=== PATIENT | male | born 1955 | race Caucasian/White ===

== ENCOUNTER 2018-06-25 10:16 | Emergency (ER) | payer BC, SELFPAY ==
[2018-06-25 10:17] VITALS: BP 149/82; PULSE 87; RESP 18; TEMP 36.8; O2SAT 97; BMI 37.5
--- NOTE | 2018-06-25 10:38 | CT_ITS ---
STUDY: CT ABDOMEN AND PELVIS WITH CONTRAST REASON FOR EXAM: Male, 63 years old. Right-sided abdominal pain with nausea and vomiting. History of hepatic carcinoma. RADIATION DOSAGE (If Supplied By Facility): CTDIvol = ( 17.07 ) mGy, DLP = ( 1360.47 ) mGycm TECHNIQUE: Transaxial images were obtained from the dome of the diaphragm to the symphysis pubis without oral contrast. Isovue 370 100 IV was administered. Sagittal and coronal images were reconstructed. Individualized dose optimization techniques were used for this CT. COMPARISON: None. FINDINGS: Calcified granuloma in the left lower lobe. Increased markings at the lung bases suggestive of atelectasis. Unipolar pacemaker is seen. Coronary artery calcification. There is decreased attenuation of the liver consistent with steatosis. There is a 10.8 cm x 8.9 cm hypodense mass in the midportion of the right lobe of the liver. This extends into the inferior pole of the liver as well as in the region of the gallbladder fossa. This is suggestive of either hepatocellular carcinoma or metastatic disease. A small cyst is seen in the anterior aspect of the right lobe. There are multiple gallstones. Normal spleen. Normal pancreas. Normal bilateral adrenal glands. Normal right kidney. Left parapelvic cysts. There is a small hiatal hernia. Normal small intestine. There are multiple colonic diverticula consistent with diverticulosis. The appendix is visualized and appears normal. There is diffuse atherosclerotic calcification of the abdominal aorta, without a demonstrated aneurysm. Normal inferior vena cava. There is borderline retroperitoneal lymphadenopathy with enlarged nodes no greater than 10mm in the short axis diameter. Normal urinary bladder. Small bilateral inguinal hernias containing fat worse on the left side. There are mild degenerative changes of the visualized lumbar spine. CT/Abdomen/Pelvis W IV Cont ONLY IMPRESSION: Large inhomogeneous mass in the right lobe of the liver extending into the region of the gallbladder fossa. Diffuse fatty infiltration of the liver. Gallstones. Sigmoid diverticulosis. Electronically Signed: Juan Yeboah MD at 12:36 EST , Service support ,
--- NOTE | 2018-06-25 10:54 | ED.VISSUMM ---
- ER Visit Summary Date of Service: 06/25/18 Chief Complaint: Abdominal pain, nausea, vomiting History of Present Illness: The patient is a 63 M with recent diagnosis of liver carcinoma presents to the emergency department with abdominal pain, nausea, and vomiting. The patient initially had abdominal pain in the early part of April. They went to [facility]. He was diagnosed with gallstones, but was found to have masses in his liver. He has been following with Dr. Mccallum. He did have chemo a week ago. He states last night, he began to have a dull ache in his upper abdomen. He states when he woke this morning, he was nauseated with some vomiting. He has been moving his bowels without issue. He does not think that he had fever, but he does admit to some chills. He denies any other systemic symptoms. Physical Examination: Vital signs reviewed General: Well-nourished, well-developed Head: Normocephalic, atraumatic Eyes: Pupils equal and reactive, extraocular muscles intact Neck, supple, no lymphadenopathy Heart: Regular rate and rhythm Respiratory: No distress, clear bilaterally Abdomen: Soft, nontender, nondistended, no peritoneal signs Back: Nontender Extremities: Nontender, no edema, no cords Skin: Normal color no rash Neuro: Alert and oriented, no focal or lateralizing deficits Test Results: [] Emergency Department Course and Treatment: Patient only had very mild pain in his right upper quadrant. He has not had any fever. IV was established. He was given fluids and analgesics. He still had pain in his analgesics were redosed. He is remained pain-free since then. Screening labs were obtained. He does not have a mild leukocytosis, but he is not neutropenic. Urine shows no infection. LFTs were normal. Lactate was normal. Patient underwent CT of abdomen pelvis. This does demonstrate his large intrahepatic mass which we knew about. There is also a solitary gallstone. I also obtained a right upper quadrant ultrasound which shows a normal gallbladder. On reevaluation, he is still resting comfortably. I discussed the patient with Dr. Issa. At this time, I do feel the patient is safe for outpatient therapy. He is comfortable with this plan of care. He will be discharged home. Treatment Plan: [] Disposition: Discharge Impression:. 1. Abdominal pain This note was generated with Dragon dictation software. It may contain incorrect words, spelling, and punctuation that were not noted in review of the chart prior to signing ED Disposition - Plan for ED Patient: Instructions: ED Abdominal Pain Unkn Cause Prescriptions: Oxycodone [Oxyir] 5 mg PO Q6H PRN PRN 3 Days #10 tab PRN Reason: Pain Ondansetron [Zofran Odt] 4 mg PO Q8H PRN PRN #10 tab PRN Reason: Nausea Referrals: Yari Arroyo PA-C [Primary Care Provider] -
[2018-06-25] MEDS: Ondansetron 4 MG/2 ML Vial IV (10:55)
[2018-06-25] MEDS: Morphine 4 MG/ML Syringe IV (10:55)
[2018-06-25] MEDS: 0.9% Normal Saline 1,000 ML 1000 ML IV (10:55)
[2018-06-25 10:58] LABS: Absolute Lymphocyte Count 0.52 X10^3/ul (0.83-4.51); Absolute Neutrophil Count 12.3 X10^3/uL (2.0-7.7); Basophil# 0.02 X10^3/uL; Basophil% 0.1 % (0-1); Eosinophil# 0.03 X10^3/uL; Eosinophils% 0.2 % (0-5); Hematocrit 36.4 % (40-54); Lymphocyte # 0.52 X10^3/ul (4.0); Lymphocyte % 3.6 % (19-41); Mean Corpuscular Hgb 28.4 pg (27.0-32.0); Mean Corpuscular Volume 86.3 fL (80-94); Mean Platelet Vol. 8.9 fl (6.2-12.0); Monocyte# 1.47 X10^3/uL; Monocyte% 10.2 % (0-10); Neutrophil # 12.34 X10^3/uL (2.7-7.7); Neutrophil % 85.6 % (47-70); Platelet Count 186 K/mm3 (150-450); RBC Distribution Width CV 13.9 % (11.6-14.6); RBC Distribution Width SD 41.9 fl (35.1-43.9); Red Blood Count 4.22 M/mm3 (4.6-6.2); White Blood Count 14.4 K/mm3 (4.4-11.0)
[2018-06-25 11:00] LABS: POSITIVE COUNT NO; POSITIVE DIFFERENTIAL YES; POSITIVE MORPHOLOGY NO
[2018-06-25 11:01] LABS: Differential Indicated SCAN CRITERIA MET
[2018-06-25 11:12] LABS: ALB/GLOB Ratio 0.8 RATIO (0.9-2.4); AST(SGOT) 26 U/L (15-37); Alanine Aminotransfer ALT/SGPT 19 U/L (16-61); Alkaline Phosphatase 98 U/L (45-117); Anion Gap 8 (5-15); BUN 11 mg/dL (7-18); BUN/Creat Ratio 13.2 RATIO (10-20); Calcium,Total 8.9 mg/dL (8.5-10.1); Chloride 106 mmol/L (98-107); Creatinine, Serum 0.83 mg/dL (0.70-1.30); EST Glomerular Filtration Rate 100 mL/min (>60); Est Glom Filt Rate - Afr Amer 121 mL/min (>60); Estimated Creatinine Clearance 111.71 ml/min; Globulin 3.9 g/dL (2.2-4.2); Glucose 122 mg/dL (74-106); Lipase 235 U/L (73-393); Protein, Total 6.9 g/dL (6.4-8.2); Sodium Level 136 mmol/L (136-145)
[2018-06-25 11:21] LABS: Lactic Acid 1.1 mmol/L (0.4-2.0)
[2018-06-25 11:24] LABS: Differential Comment SCANNED; Platelet Estimate ADEQUATE (ADEQ); Red Cell Morphology NORM C+C NORMAL (NORM C&C)
--- NOTE | 2018-06-25 11:31 | US_ITS ---
STUDY: ABDOMINAL ULTRASOUND - RIGHT UPPER QUADRANT REASON FOR VISIT: Male, 63 years old. Right upper quadrant pain. TECHNIQUE: Ultrasound evaluation of the right upper quadrant was performed with real-time and static berger-scale imaging. TECHNICAL QUALITY: Adequate. COMPARISON: Comparison is made with prior CT scan of the abdomen today. FINDINGS: Liver: The liver is enlarged and measures 21 cm. There is increased echogenicity consistent with fatty infiltration. The bile ducts are within normal limits. There is hepatic color flow. The direction of portal flow is hepatopetal. There is a dominant 7.2 cm x 0.7 cm x 6.9 cm inhomogeneous solid mass in the mid and inferior portion of the right lobe of the liver. A similar-appearing mass measuring 4.9 cm x 5.2 cm x 5.4 cm also seen in the right lobe. Gallbladder: Normal distended gallbladder. The gallbladder wall measures 3.1 mm. There is a negative sonographic Tuttle's sign. There is no pericholecystic fluid. There is a solitary echogenic gallstone within the gallbladder. This measures 1.2 cm x 1.4 cm x 0.8 cm. Common Bile Duct (C.B.D.): The common bile duct measures 5.3 mm. Pancreas: Normal size of the head, body and tail of the pancreas. There is normal echogenicity of the pancreas. There is no demonstrated pancreatic mass or cyst. Right Kidney: Normal size of the right kidney. The right kidney measures 14.6 cm x 6.1 cm x 6.3 cm. Normal renal cortex. The right cortex measures 1.5 cm. There is no demonstrated renal mass or cyst. There is no right hydronephrosis. US/Gallbladder IMPRESSION: Hepatomegaly with the 2 masses within the liver as described. Single gallstone. Electronically Signed: Juan Yeboah MD at 13:17 EST , Service support ,
[2018-06-25 11:51] VITALS: BP 134/80; PULSE 83; RESP 17; O2SAT 95
[2018-06-25] MEDS: HYDROmorphone 1 MG/ML Syringe IV (11:51)
[2018-06-25 13:10] LABS: Bacteria 0 SEEN /hpf (None Seen); Mucous, Urine 0 SEEN /hpf (<or=2+); Red Blood Cells-Urine 0 SEEN /hpf (0-5); White Blood Cells 0 SEEN /hpf (0-5)
[2018-06-25 13:11] LABS: Color, Urine Yellow (Yellow); Glucose, Dipstick Normal (Normal); Ketone-Dipstick Negative (Negative); Leukocyte Esterase-Dipstick 25 /ul (Negative); Nitrite-Dipstick Negative (Negative); Occult Blood-Urine Negative /ul (Negative); Protein-Dipstick 30 mg/dl (Negative); Urine Bilirubin Dipstick Negative (Negative); Urine Clarity Clear (Clear); Urine Urobilinogen Normal (Normal)
[2018-06-25 13:29] LABS: Squamous Epithelial Cells - UA 0-5 SEEN /hpf (0-5)
[2018-06-25 13:57] VITALS: BP 135/76; PULSE 81; RESP 17; O2SAT 95
== END 2018-06-25 13:57 | disposition home or self-care (01) ==
LOC: ED 11:07
PROVIDERS: Emergency Provider Emergency Medicine; Family Provider Family Medicine; PCP Family Medicine
DX: R10.10 Upper abdominal pain, unspecified (principal); C22.8 Malignant neoplasm of liver, primary, unspecified as to type
CPT/HCPCS: 36591; 74177; 76705; 80053; 81001; 83605; 83690; 85025; 96361; 96374; 96375; 99282; J7030; Q9967; A4216; J2405

== ENCOUNTER 2018-07-27 09:16 | Inpatient (IN) | payer BC, SELFPAY ==
[2018-07-27] VITALS (13 sets, daily range): BP systolic 114–152; BP diastolic 67–92; PULSE 88–107; RESP 16–22; TEMP 36–37; O2SAT 91–97; BMI 36.6; BMI 36.2; BMI 36.3
--- NOTE | 2018-07-27 09:29 | RAD_ITS ---
STUDY: X-RAY CHEST REASON FOR EXAM: Male, 63 years old. Cough and shortness of breath. TECHNIQUE: Single AP portable view of the chest. COMPARISON: None. FINDINGS: A right-sided portacatheter is seen with the tip in the proximal portion of the superior vena cava. EKG electrodes are seen. The lungs are clear and expanded. There is no demonstrated pleural abnormality. Normal size heart. Normal mediastinum and maribel. Normal visualized pulmonary arteries. There is atherosclerotic calcification of the aortic arch with tortuosity. There are diffuse degenerative changes of the visualized thoracic spine. Normal visualized ribs, clavicles, and shoulders. There is no demonstrated abnormality of the visualized soft tissue structures of the upper abdomen. RAD/Chest 1 View (Portable) IMPRESSION: No acute abnormality is present. Electronically Signed: Juan Yeboah, at 10:10 EDT , Service support ,
--- NOTE | 2018-07-27 09:29 | EKG12_ITS ---
Test Reason : SOB Blood Pressure : / mmHG Vent. Rate : 091 BPM Atrial Rate : 091 BPM P-R Int : 188 ms QRS Dur : 094 ms QT Int : 360 ms P-R-T Axes : 051 -12 029 degrees QTc Int : 442 ms Normal sinus rhythm Normal ECG Confirmed by MICHEAL GUADARRAMA, ROSCOE ([id number]), advertising editor JANNETTE RAHMAN ([id number]) on 07/29/2018 12:47:46 PM Referred By: MARGE Confirmed By:ROSCOE BURTON MD
--- NOTE | 2018-07-27 09:32 | ED.VISSUMM ---
- ER Visit Summary Date of Service: 07/27/18 Chief Complaint: Shortness of breath History of Present Illness: The patient is a 63 M with history of cholangiocarcinoma last chemotherapy 10 days ago presents to the emergency department dyspnea. The patient follows with Dr. Issa. He had an outpatient CT scan done on Thursday to evaluate response to treatment. He was found to have bilateral pulmonary emboli with a saddle embolus. Patient states that over the past 2 days, he is felt more short of breath. He states that he cannot walk more than 10 feet without getting dyspneic. He does have some chest heaviness. He denies any fevers. He has had some night sweats, but states he had a sense he was diagnosed with his cancer. He denies cough. Patient has no history of prior pulmonary emboli. He denies any recent surgery. He is otherwise been in his normal state of health. Physical Examination: Vital signs reviewed General: Well-nourished, well-developed Head: Normocephalic, atraumatic Eyes: Pupils equal and reactive, extraocular muscles intact Neck, supple, no lymphadenopathy Heart: Regular rate and rhythm Respiratory: No distress, clear bilaterally Abdomen: Soft, nontender, nondistended, no peritoneal signs Back: Nontender Extremities: Nontender, no edema, no cords Skin: Normal color no rash Neuro: Alert and oriented, no focal or lateralizing deficits Test Results: [] Emergency Department Course and Treatment: [The patient presents with diagnosed bilateral pulmonary emboli. I was able to review his outpatient. He was mildly tachypneic on arrival. His pulse ox is 90%. He was placed on 2 L and had increasing comfort. His EKG shows evidence of right ventricular strain or acute ischemia. Enzymes are normal. BNP was normal. However, given the patient's significant clot burden I do feel that he is going to require admission. I discussed the patient with both the hospitalist, Dr. Murrieta and Dr. Mccallum, the patient's oncologist. Patient is given therapeutic Lovenox and will be admitted to telemetry for further workup of his bilateral pulmonary emboli. Treatment Plan: [] Disposition: Admission Impression: 1. Bilateral pulmonary emboli This note was generated with GeneTexation software. It may contain incorrect words, spelling, and punctuation that were not noted in review of the chart prior to signing ED Disposition - Plan for ED Patient: Referrals: Yari Arroyo PA-C [Primary Care Provider] -
[2018-07-27 10:15] LABS: Hematocrit 33.9 % (40-54); Mean Corp Hgb Conc 32.4 g/gl (32-36); Mean Corpuscular Hgb 27.8 pg (27.0-32.0); Mean Corpuscular Volume 85.6 fL (80-94); Mean Platelet Vol. 9.8 fl (6.2-12.0); Platelet Count 147 K/mm3 (150-450); RBC Distribution Width SD 52.3 fl (35.1-43.9); Red Blood Count 3.96 M/mm3 (4.6-6.2); White Blood Count 3.1 K/mm3 (4.4-11.0)
[2018-07-27 10:19] LABS: International Normalized Ratio 1.2; Prothrombin Time (Protime)PT. 14.9 SECONDS (11.7-14.9)
[2018-07-27 10:20] LABS: Partial Thromboplast Time 35.3 Seconds (24.1-36.2)
[2018-07-27 10:21] LABS: Differential Indicated MANUAL DIFF; POSITIVE COUNT YES; POSITIVE DIFFERENTIAL YES; POSITIVE MORPHOLOGY YES
[2018-07-27 10:34] LABS: ALB/GLOB Ratio 0.8 RATIO (0.9-2.4); AST(SGOT) 30 U/L (15-37); Alanine Aminotransfer ALT/SGPT 23 U/L (16-61); Albumin, Serum 2.9 g/dL (3.2-5.0); Alkaline Phosphatase 120 U/L (45-117); Anion Gap 5 (5-15); BNP,B-Type NATRIURETIC PEPTIDE 57.5 pg/mL (0-100); BUN 11 mg/dL (7-18); BUN/Creat Ratio 11.6 RATIO (10-20); Calcium,Total 9.1 mg/dL (8.5-10.1); Chloride 106 mmol/L (98-107); Creatinine, Serum 0.95 mg/dL (0.70-1.30); EST Glomerular Filtration Rate 86 mL/min (>60); Est Glom Filt Rate - Afr Amer 104 mL/min (>60); Globulin 3.7 g/dL (2.2-4.2); Glucose 91 mg/dL (74-106); Potassium 4.2 mmol/L (3.5-5.1); Protein, Total 6.6 g/dL (6.4-8.2); Sodium Level 137 mmol/L (136-145)
[2018-07-27 10:37] LABS: Absolute Nucleated RBC Count 0.08 10^3/uL (0-5); NRBC Flagged by Analyzer 2.5 % (0-5)
--- NOTE | 2018-07-27 10:48 | HP.PCM_ITS ---
Problem List (1) Pulmonary embolism Status: Acute Qualifiers: Pulmonary embolism type: saddle Chronicity: acute (2) Cholangiocarcinoma Status: Chronic (3) Anxiety and depression Status: Chronic (4) GERD (gastroesophageal reflux disease) Status: Chronic Qualifiers: Esophagitis presence: esophagitis presence not specified Qualified Code(s): K21.9 - Gastro-esophageal reflux disease without esophagitis (5) Hypokalemia Status: Chronic History of Present Illness Date of Admission: 07/27/18 Chief Complaint: Chest pain, dyspnea. The patient is a 63 y/o M w/ PMHx: Anxiety and Depression, Overweight, Hypokalemia, GERD, Recent 04/05/18 Diagnosis Choleangiocarcinoma (Metastatic) now completed his fourth round of chemotherapy with next initial planned start on 07/28/18 following w/ Dr. Issa who noted onset of a very transient episode of initially chest discomfort, midsternal, sharp stabbing in nature with shortness of breath associated, resolved quickly and did occur when he was more active with a repeat episode this prior Thursday with onset then progressively worsening dyspnea over the last 1.[address] abdomen and pelvis obtained for routine follow-up evaluation for his cholangiocarcinoma with noted saddle embolus with referral to the ED for immediate evaluation. He does also mention that over the last couple weeks he did have transient primarily right calf discomfort and does have bilateral lower extremity chronic edema although not pitting. In the ED workup included T 96.8, heart rate 107, BP 145/80, respiratory rate 18, 91% on room air, CBC with WBC 3.1, hemoglobin 11, platelet 147, unremarkable coags, unremarkable CMP aside alk phos 120, troponin less than 0.015, EKG with no acute evidence of ischemia, CT chest, abdomen and pelvis with contrast performed outpatient at the [facility] notable for results inclusive of large bilateral central pulmonary embolism with emboli extending peripherally to at least the level of the segmentals arteries, stable pulmonary nodules, mild decrease in size of primary hepatic mass and adjacent secondary mass, stable abdominal adenopathy. In the emergency room patient administered therapeutic Lovenox x1. Discussed case with patient oncologist. From review of case Dr. Issa and upon immediate read and results of saddle embolism patient called in therapeutic Lovenox but given severe symptomatology occurred emergently to the ED. Upon evaluation of patient initially he notes improvement just with oxygen supplementation. Past Medical History Past Medical History (Chronic Problems): Chronic Problems Cholangiocarcinoma (Chronic) Anxiety and depression (Chronic) GERD (gastroesophageal reflux disease) (Chronic) Hypokalemia (Chronic) Allergies ondansetron [From Zofran] Adverse Reaction (Verified 07/27/18 09:17) Nausea Home Medications: Ambulatory Orders Medication Instructions Recorded Fluoxetine [Prozac] 20 mg PO DAILY 07/27/18 Omeprazole 20 mg PO BID 07/27/18 Potassium Chloride [Klor-Con] 20 meq PO DAILY 07/27/18 Promethazine HCl 25 mg PO PRN PRN 07/27/18 Surgical History: - - Port placement, wisdom teeth extraction. Psychiatric History: Anxiety, Depression Lives: Spouse/ Significant Other Smoking Status: Former smoker - Quit 26+ years prior with prior to this 1.5 pack/day cigarette tobacco usage. Tobacco Use: Non-smoker Alcohol: Rare Drugs: None - *Family History Maternal History Items: - - Patient notes a maternal family history of secondary to complications from a ruptured abdominal abscess of some type with peritonitis in her 70s. Paternal History Items: - - Notes a paternal family history of pancreatic cancer, at age 58. Review of Systems Constitutional: Reports: Malaise, Weakness, Fatigue. Denies: Chills, Fever, Weight Change HEENT: Denies: Head Aches, Sinus Congestion, Sinus Drainage Cardiovascular: Reports: Chest Pain, Edema. Denies: Chest Pressure, Chest Tightness, Heaviness, Light Headedness, Orthopnea, Palpitations, Syncope Respiratory: Reports: Shortness of Breath, Shortness of breath at rest, Shortness of breath upon exertion. Denies: Cough, Sputum production Gastrointestinal: Denies: Abdominal Pain, Nausea, Vomiting Genitourinary: Denies: Dysuria Musculoskeletal: Reports: Leg Pain. Denies: Joint Pain, Joint Tenderness Skin: Denies: Rash, Wounds Neurological: Denies: Numbness, Tingling, Focal weakness Psychiatric: Reports: Anxiety, Depression. Denies: Homicidal Ideations, Suicidal Ideations Hematologic/ Lymphatic: Reports: Anemia. Denies: Easy Bruising, Easy Bleeding VTE Information - Inpt Only VTE Present on Admission: No VTE Mechan Device Prophylaxis: SCD's VTE Pharm Prophylaxis ordered?: Yes Patient Problems: Active and Suspected Problems Pulmonary embolism (Acute) Subjective: Seated upright in the PCU bed, no acute distress, notes feeling improved since oxygen supplementation initiated in the ED. No current chest discomfort. Objective: Physical Examination: General: awake, alert, oriented x 3 and cooperative, seated upright in the PCU bed, no acute distress, no current chest discomfort, dyspnea has improved. Skin: normal color, turgor, no icterus, cyanosis. HEENT: AT/NC, EOMI, PERRLA, mildly dry MM, no carotid bruits or JVD noted. Lungs: Diminished breath sounds, greater bilateral bases, moderate effort, no rales, ronchi or wheezing. Heart: Improved, regular rate and rhythm; no gallop, rub audible. Abdomen: soft, obese, NTTP, ND, normal BS, difficult to assess for HSM secondary to habitus. Extremities: no cyanosis, clubbing, bilateral lower extremity pedal to proximal montague edema, nonpitting, no current bilateral calf discomfort noted with palpation. Neurological: patient awake, alert, oriented x 3; cognitive function intact; pupils equally reactive to light and accomodation; cranial nerves II-XII grossly normal, moving all 4 extremities, no focal deficits, strength moderately to severely globally decreased secondary to acute presentation Psychiatric: affect appears normal, mildly fatigued, no acute evidence of depressive or anxiety feelings. - Physical Exam Vital Signs Temp Pulse Resp BP Pulse Ox 96.8 F L 93 22 H 122/81 H 97 07/27/18 09:17 07/27/18 10:26 07/27/18 10:26 07/27/18 10:26 07/27/18 10:26 Oxygen Flow Rate (L/min) 2 Oxygen Delivery Method Nasal Cannula Weight: 293 lb Body Mass Index (BMI) 36.6 Laboratory Tests Past 24 Hrs 07/27/18 07/27/18 07/27/18 09:50 09:50 09:50 WBC 3.1 L RBC 3.96 L Hgb 11.0 L Hct 33.9 L MCV 85.6 MCH 27.8 MCHC 32.4 RDW 18.0 H RDW Differential 52.3 H Plt Count 147 L MPV 9.8 Neut % (Auto) Not Reportable Absolute Neuts (auto) Not Reportable Total Counted Pending Nucleated RBC % 2.5 Absolute Retic 0.08 PT 14.9 INR 1.2 APTT 35.3 Sodium 137 Potassium 4.2 Chloride 106 Carbon Dioxide 26.0 Anion Gap 5 BUN 11 Creatinine 0.95 Estim Creat Clear Calc 97.60 Est GFR (MDRD) Af Amer 104 Est GFR (MDRD) Non-Af 86 BUN/Creatinine Ratio 11.6 Glucose 91 Calcium 9.1 Total Bilirubin 0.50 AST 30 ALT 23 Alkaline Phosphatase 120 H Troponin I < 0.015 B-Natriuretic Peptide Total Protein 6.6 Albumin 2.9 L Globulin 3.7 Albumin/Globulin Ratio 0.8 L 07/27/18 09:50 WBC RBC Hgb Hct MCV MCH MCHC RDW RDW Differential Plt Count MPV Neut % (Auto) Absolute Neuts (auto) Total Counted Nucleated RBC % Absolute Retic PT INR APTT Sodium Potassium Chloride Carbon Dioxide Anion Gap BUN Creatinine Estim Creat Clear Calc Est GFR (MDRD) Af Amer Est GFR (MDRD) Non-Af BUN/Creatinine Ratio Glucose Calcium Total Bilirubin AST ALT Alkaline Phosphatase Troponin I B-Natriuretic Peptide 57.5 Total Protein Albumin Globulin Albumin/Globulin Ratio Assessment/Plan All Active Problems Pulmonary embolism (Acute) The patient is a 63 y/o M w/ PMHx: Anxiety and Depression, Overweight, Hypokalemia, GERD, Recent 04/05/18 Diagnosis Choleangiocarcinoma (Metastatic) now completed his fourth round of chemotherapy with next initial planned start on 07/28/18 following w/ Dr. Issa who noted onset of a very transient episode of initially chest discomfort, midsternal, sharp stabbing in nature with shortness of breath associated, resolved quickly and did occur when he was more active with a repeat episode this prior Thursday with onset then progressively worsening dyspnea over the last 1.[address] abdomen and pelvis obtained for routine follow-up evaluation for his cholangiocarcinoma with noted saddle embolus with referral to the ED for immediate evaluation. (1) Dyspnea, chest pain secondary to Pulmonary Embolism, Saddle: ED workup incl uded T 96.8, heart rate 107, BP 145/80, respiratory rate 18, 91% on room air, CBC with WBC 3.1, hemoglobin 11, platelet 147, unremarkable coags, unremarkable CMP aside alk phos 120, troponin less than 0.015, EKG with no acute evidence of ischemia, CT chest, abdomen and pelvis with contrast performed outpatient at the [facility] notable for results inclusive of large bilateral central pulmonary embolism with emboli extending peripherally to at least the level of the segmentals arteries, stable pulmonary nodules, mild decrease in size of primary hepatic mass and adjacent secondary mass, stable abdominal adenopathy. In the emergency room patient administered therapeutic Lovenox x1. Discussed case with patient oncologist. From review of case Dr. Issa and upon immediate read and results of saddle embolism patient called in therapeutic Lovenox but given severe symptomatology occurred emergently to the ED. Will admit to PCU, maintain on cardiac telemetry. Will obtain ECHO and BL LE DVT US. Given acute severe saddle PE in the setting of known cancer, per recommendations based on CLOT trial and superiority of injectable anticoagulation compared to PO anticoagulation with pts with active malignancy and thrombosis will plan to assess for initiation and continuation of lovenox 1 mg/kg q12. If not an option (i.e cost), may consider usage per CLOT trial of new oral anticoagulants or coumadin regimen; however, recently called in per his oncologist and was noted to be affordable at that time. (2) Metastatic cholangiocarcinoma: Patient with recent 04/05/18 diagnosis, recently completed his fourth round of chemotherapy, next planned start on 07/28/18, following w/ Dr. Issa, mag and phos pending. Discussed case with Dr. Issa and will follow-up with him upon discharge, will delay chemotherapy until clinically appropriate from current acute presentation. (3) Pancytopenia, Chronic: Admission CBC with WBC 3.1, hemoglobin 11, platelet 147, ongoing recent chemotherapy with as noted diagnosis cholangiocarcinoma, metastatic, trend CBC. (4) Anxiety and Depression: Continue home Prozac regimen. (5) Hypokalemia: Maintain patient on home potassium supplementation. (6) GERD: Continue home PPI. (7) DVT prophylaxis: SCDs pending anticoagulation and DVT study, therapeutic Lovenox to be continued. Code Visit Inpatient E&M: 97236 Init Hosp L3
[2018-07-27 10:51] LABS: Basophil 2 % (0-1); Eosinophil 4 % (0-5); Lymphocyte 39 % (19-41); Metamyelocyte 1 % (0-1); Monocyte 38 % (0-10); Neutrophil-Band 4 % (0-5); Neutrophil-Segmented 12 % (47-70); Platelet Estimate SLT DEC (ADEQ); Red Cell Morphology NORM C+C NORMAL (NORM C&C); Total Cells Counted 100 (MANUAL DIFF)
[2018-07-27 10:52] LABS: Absolute Neutrophil Count 0.5 X10^3/uL (2.0-7.7)
[2018-07-27] MEDS: Enoxaparin 150 MG/ML Syringe 130 MG SC ×2 (11:10→22:12)
--- NOTE | 2018-07-27 11:20 | CASEMGMT ---
RN CM Assessment Introduced role of RN CM to patient and spouse Patsy at bedside.? Patient is alert, oriented and able?to participate in RN CM Assessment. ?Care providers, pharmacy, and demographics verified. Presentation: Dyspnea. H/o Cholangiocarcinoma, last Chemo 10days ago. Outpt f/u CT to eval Tx response done Thursday- found bilt PE w/a saddle embolus. Admit Dx: Acute PE, Dyspnea Re-Admit: No, ER 06/25/18 for vomiting. Barriers/Issues: None PCP: Yari Arroyo Specialists: Jorge Alberto Issa [facility] Insurance: [employer] Rx Benefit: Yes? ?LNOK: Spouse Patsy Gorman LW/HPOA: Yes, HPOA Spouse Patsy Gorman. Living Arrangements:? Lives with spouse in a SS Home, Ramp to enter. ADL?s: Independent with ambulation and ADL's. Transportation: Patient drives, spouse to transport on DC DME: None HHC: None SNF: None Goal: Home, spouse able to assist if needed as she is a COMM[employer] SERVICE [employer] OFFICER. DC PLAN: Home with no anticipated needs identified at this time. Possible Home O2 if O2 sat drops with ambulation/exertion. SHELDON Davis
--- NOTE | 2018-07-27 11:37 | VDLE_ITS ---
Reason For Study: PE RIGHT LEFT CFV is compressible, spontaneous, phasic, GSV is normal. competent and demonstrates normal CFV is compressible, spontaneous, phasic, augmentation. competent, and demonstrates normal Acute deep vein thrombosis is noted in the augmentation. right femoral vein. FV is compressible, spontaneous, phasic, Acute deep vein thrombosis is noted in the competent and demonstrates normal right popliteal vein. augmentation. Acute deep vein thrombosis is noted in the POP V is compressible, spontaneous, phasic, right T/P Trunk. competent and demonstrates normal Acute deep vein thrombosis is noted in the augmentation. right posterior tibial vein. T/P Trunk is compressible. Acute deep vein thrombosis is noted in the PTV is compressible. right peroneal vein. LT PerV is compressible. Procedure Exam performed portable in patient room. The exam was diagnostic. Interpretation Summary There is no evidence of left lower extremity deep vein thrombosis. Left greater saphenous vein appears patent and compressible segmentally. Acute deep venous thrombosis right femoral, popliteal, tibioperoneal trunk, posterior tibial, and peroneal veins Ordering Physician: Lanny Murrieta Performed By: Aissatou Melgar RVT
--- NOTE | 2018-07-27 11:37 | ECHOD_ITS ---
Reason For Study: PULM EMBOLI Procedure This was a 2D Doppler, Color Flow transthoracic echocardiogram. Myocardial strain analysis was performed in this exam to aid in the assessment of cardiac function. The exam was of adequate technical quality. Exam performed portable in patient room. Left Ventricle Normal LV size. Left ventricular systolic function is normal. The estimated ejection fraction is 60 %. The global longitudinal strain = -22 % (normal). No evidence for diastolic dysfunction. No regional wall motion abnormalities noted. Right Ventricle Normal RV size. Normal systolic function. Atria Normal left atrium. Normal right atrium. No doppler evidence for ASD. Mitral Valve There is no mitral annular calcification. Normal mitral valve. Trivial mitral valve insufficiency. Tricuspid Valve Normal tricuspid valve. Trivial tricuspid valve insufficiency. Aortic Valve Trisinus/trileaflet aortic valve. Mild focal aortic valve calcification. Pulmonic Valve The pulmonic valve is not well visualized. Trivial pulmonic valve insufficiency. Great Vessels Normal sized aortic root. Pericardium/Pleural No pericardial effusion. MMode/2D Measurements & Calculations LVIDd: 3.7 cm IVSd: 1.2 cm Ao root diam: 3.4 cm LVIDs: 2.6 cm LVPWd: 1.2 cm RVDd: 3.5 cm FS: 30.0 % LAV(MOD-bp): 49.1 ml LVAd ap4: 33.5 cm2 SV(MOD-sp4): 62.1 ml LAV(MOD-bp) Indexed: 19.0 ml/m2 EDV(MOD-sp4): 98.6 ml LAV(MOD-sp2): 60.0 ml EDV(sp4-el): 105.0 ml LAV(MOD-sp4): 36.1 ml LVAs ap4: 17.2 cm2 ESV(MOD-sp4): 36.5 ml ESV(sp4-el): 37.6 ml EF(MOD-sp4): 63.0 % EF(sp4-el): 64.2 % SV(sp4-el): 67.4 ml LA A4 area: 15.4 cm2 LA dimension(2D): 3.5 cm RA A4 area: 14.8 cm2 Time Measurements MV dec time: 0.23 sec Doppler Measurements & Calculations MV E max ruperto: 65.7 cm/sec Lat Peak E' Ruperto: 11.7 cm/sec Med Peak E' Ruperto: 9.3 cm/sec MV A max ruperto: 83.9 cm/sec E/E' lat: 5.6 E/E' med: 7.1 MV E/A: 0.78 Ao V2 max: 179.5 cm/sec LV V1 max: 130.4 cm/sec PA V2 max: 93.5 cm/sec Ao max P.9 mmHg LV V1 max P.8 mmHg Interpretation Summary Left ventricular systolic function is normal. The estimated ejection fraction is 60 %. The global longitudinal strain = -22 % (normal). Trivial mitral valve insufficiency. Trivial tricuspid valve insufficiency. Mild focal aortic valve calcification. Trivial pulmonic valve insufficiency. No evidence for diastolic dysfunction. Ordering Physician: Lanny Murrieta Performed By: Mariam Anthony RDCS
[2018-07-27 12:01] LABS: Magnesium 2.1 mg/dL (1.6-2.6); Phosphorus 2.9 mg/dL (2.5-4.9)
[2018-07-27] MEDS: Pantoprazole Sodium 20 MG Tablet PO (22:11)
[2018-07-28] VITALS (8 sets, daily range): BP systolic 116–121; BP diastolic 72–80; PULSE 81–97; RESP 16–18; TEMP 36.5–36.7; O2SAT 90–95
[2018-07-28] MEDS: 0.9% NaCl VAD Flush 10 ML IV ×4 (04:16→13:39)
[2018-07-28 04:49] LABS: Anion Gap 7 (5-15); BUN 9 mg/dL (7-18); BUN/Creat Ratio 9.6 RATIO (10-20); Calcium,Total 9.1 mg/dL (8.5-10.1); Chloride 105 mmol/L (98-107); Creatinine, Serum 0.94 mg/dL (0.70-1.30); EST Glomerular Filtration Rate 87 mL/min (>60); Est Glom Filt Rate - Afr Amer 105 mL/min (>60); Estimated Creatinine Clearance 98.63 ml/min; Glucose 84 mg/dL (74-106); Potassium 4.1 mmol/L (3.5-5.1); Sodium Level 140 mmol/L (136-145)
[2018-07-28 04:53] LABS: Hematocrit 34.3 % (40-54); Hemoglobin 10.8 g/dl (13.0-16.5); Mean Corp Hgb Conc 31.5 g/gl (32-36); Mean Corpuscular Hgb 27.8 pg (27.0-32.0); Mean Corpuscular Volume 88.2 fL (80-94); Mean Platelet Vol. 9.3 fl (6.2-12.0); Platelet Count 163 K/mm3 (150-450); RBC Distribution Width CV 18.4 % (11.6-14.6); RBC Distribution Width SD 54.5 fl (35.1-43.9); Red Blood Count 3.89 M/mm3 (4.6-6.2); White Blood Count 4.4 K/mm3 (4.4-11.0)
[2018-07-28 04:54] LABS: Differential Indicated MANUAL DIFF; POSITIVE COUNT YES; POSITIVE DIFFERENTIAL NO; POSITIVE MORPHOLOGY YES
[2018-07-28 05:13] LABS: Anisocytosis 1+; Eosinophil 3 % (0-5); Lymphocyte 45 % (19-41); Metamyelocyte 4 % (0-1); Monocyte 9 % (0-10); Neutrophil-Band 7 % (0-5); Neutrophil-Segmented 32 % (47-70); Nucleated Red Bld Cells,Manual 2 % (0-5); Reactive Lymphocyte 1+; Total Cells Counted 100 (MANUAL DIFF)
[2018-07-28 05:14] LABS: Hypochromasia 1+; Microcytosis 1+; Platelet Estimate ADEQUATE (ADEQ); Platelet Morphology LARGE; Polychromasia 1+
[2018-07-28 05:16] LABS: Absolute Lymphocyte Count 1.98 X10^3/ul (0.83-4.51); Absolute Neutrophil Count 1.7 X10^3/uL (2.0-7.7)
--- NOTE | 2018-07-28 05:55 | EKG12_ITS ---
Test Reason : AM EKG Blood Pressure : / mmHG Vent. Rate : 087 BPM Atrial Rate : 087 BPM P-R Int : 192 ms QRS Dur : 094 ms QT Int : 370 ms P-R-T Axes : 058 -11 034 degrees QTc Int : 445 ms Normal sinus rhythm Normal ECG When compared with ECG of 27-JUL-2018 09:36, MANUAL COMPARISON REQUIRED, DATA IS UNCONFIRMED Confirmed by MICHEAL GUADARRAMA, ROSCOE ([id number]), supervising editor news reel JANNETTE RAHMAN ([id number]) on 07/30/2018 1:52:00 PM Referred By: LOU Confirmed By:ROSCOE BURTON MD
--- NOTE | 2018-07-28 07:13 | PCM.PN.HOSP ---
Patient Problems: Active and Suspected Problems Pulmonary embolism (Acute) Subjective: Patient with no acute events overnight per self and per nursing report. Oxygenation assessment this a.m. with no oxygen needs. Patient denies any chest discomfort. He did have nausea and emesis bout x1 however it has improved since. He does take as needed Phenergan at home. Discussed recent test results including DVT ultrasound positive for right lower extremity DVT and patient relates history that with recent chemotherapy as he has been sitting upright and crossing his legs frequently in the chair. Patient denies fevers, chills, nausea, emesis, abdominal pain, chest pain or recurrent or worsened dyspnea. Objective: Physical Examination: General: awake, alert, oriented x 3 and cooperative, seated upright in the bed, notes recent nausea w/ emesis x 1. Skin: normal color, turgor, no icterus, cyanosis. HEENT: AT/NC, EOMI, PERRLA, improved, MMM. Lungs: Diminished breath sounds, greater bilateral bases, moderate effort, no rales, ronchi or wheezing. Heart: Regular rate and rhythm; no gallop, rub audible. Abdomen: soft, obese, NTTP, ND, normal BS. Extremities: no cyanosis, clubbing, bilateral lower extremity pedal to proximal montague edema, nonpitting, no current bilateral calf discomfort noted with palpation. Neurological: patient awake, alert, oriented x 3; cognitive function intact; pupils equally reactive to light and accomodation; cranial nerves II-XII grossly normal, moving all 4 extremities, no focal deficits, strength improved, strength mildly globally decreased. Psychiatric: affect appears normal, no acute evidence of depressive or anxiety feelings. Vitals/I&O's: Vital Signs Temp Pulse Resp BP Pulse Ox 98.0 F 88 16 116/72 95 07/28/18 04:08 07/28/18 04:08 07/28/18 04:08 07/28/18 04:08 07/28/18 04:08 Oxygen Flow Rate (L/min) 2 Oxygen Delivery Method Room Air Weight: 290 lb 2.053 oz Body Mass Index (BMI) 36.2 Intake and Output for Last 24 Hours 07/26/18 07/27/18 07/28/18 23:59 23:59 23:59 Intake Total 100 / 100 240 / 240 Balance 100 / 100 240 / 240 Laboratory Results 07/27/18 09:50: WBC 3.1 L, RBC 3.96 L, Hgb 11.0 L, Hct 33.9 L, MCV 85.6, MCH 27.8, MCHC 32.4, RDW 18.0 H, RDW Differential 52.3 H, Plt Count 147 L, MPV 9.8, Neut % (Auto) Not Reportable, Absolute Neuts (auto) 0.5 L, Absolute Lymphs (auto) 1.20, Total Counted 100, Neutrophils % (Manual) 12 L, Band Neutrophils % 4, Lymphocytes % (Manual) 39, Monocytes % (Manual) 38 H, Eosinophils % (Manual) 4, Basophils % (Manual) 2 H, Metamyelocytes % 1, Nucleated RBC % 2.5, Diff Path Review September, Platelet Estimate SLT APR, RBC Morphology NORM C+C, Absolute Retic 0.08 07/27/18 09:50: PT 14.9, INR 1.2, APTT 35.3 07/27/18 09:50: Sodium 137, Potassium 4.2, Chloride 106, Carbon Dioxide 26.0, Anion Gap 5, BUN 11, Creatinine 0.95, Estim Creat Clear Calc 97.60, Est GFR (MDRD) Af Amer 104, Est GFR (MDRD) Non-Af 86, BUN/Creatinine Ratio 11.6, Glucose 91, Calcium 9.1, Total Bilirubin 0.50, AST 30, ALT 23, Alkaline Phosphatase 120 H, Troponin I < 0.015, Total Protein 6.6, Albumin 2.9 L, Globulin 3.7, Albumin/Globulin Ratio 0.8 L 07/27/18 09:50: B-Natriuretic Peptide 57.5 07/27/18 09:50: Phosphorus 2.9, Magnesium 2.1 07/27/18 12:55: Troponin I < 0.015 07/27/18 16:10: Troponin I < 0.015 07/28/18 04:25: WBC 4.4, RBC 3.89 L, Hgb 10.8 L, Hct 34.3 L, MCV 88.2, MCH 27.8, MCHC 31.5 L, RDW 18.4 H, RDW Differential 54.5 H, Plt Count 163, MPV 9.3, Neut % (Auto) Not Reportable, Absolute Neuts (auto) 1.7 L, Absolute Lymphs (auto) 1.98, Total Counted 100, Neutrophils % (Manual) 32 L, Band Neutrophils % 7 H, Lymphocytes % (Manual) 45 H, Monocytes % (Manual) 9, Eosinophils % (Manual) 3, Metamyelocytes % 4 H, Nucleated RBCs/100 WBC 2, Diff Path Review May foll, Reactive Lymphocytes 1+, Platelet Estimate ADEQUATE, Plt Morphology Comment LARGE, Polychromasia 1+, Hypochromasia 1+, Anisocytosis 1+, Microcytosis 1+ 07/28/18 04:25: Sodium 140, Potassium 4.1, Chloride 105, Carbon Dioxide 28.0, Anion Gap 7, BUN 9, Creatinine 0.94, Estim Creat Clear Calc 98.63, Est GFR (MDRD) Af Amer 105, Est GFR (MDRD) Non-Af 87, BUN/Creatinine Ratio 9.6 L, Glucose 84, Calcium 9.1 Current Medications Acetaminophen (Tylenol) 650 mg PO Q6H PRN PRN PRN Reason: Mild Pain (scale 0-3)/T>100.7 Al Hydroxide/Mg Hydroxide (Mylanta Ii) 30 ml PO Q6H PRN PRN PRN Reason: Gastric burning Enoxaparin Sodium (Lovenox) 130 mg 1 mg/kg (130 mg) SC Q12 [facility] Last Admin: 07/27/18 22:12 Dose: 130 mg Fluoxetine HCl (Prozac) 20 mg PO DAILY [facility] Heparin Sodium (Beef Lung) () 50 units IV UD PRN PRN Reason: HEPARIN FLUSH Magnesium Hydroxide (Milk Of Magnesia) 30 ml PO DAILY PRN PRN Reason: Constipation Morphine Sulfate () 2 - 4 mg IV Q3H PRN PRN PRN Reason: Severe Pain (pain scale 6-10) Morphine Sulfate () 1 - 2 mg IV Q4H PRN PRN PRN Reason: Moderate Pain (pain scale 4-5) Nutritional Formula (Lactose Free) (Ensure Enlive) 120 ml PO 4X/DAY [facility] Last Admin: 07/27/18 22:12 Dose: Not Given Oxycodone HCl (Oxyir) 5 mg PO Q4H PRN PRN PRN Reason: Moderate Pain (pain scale 4-5) Pantoprazole Sodium (Protonix) 20 mg PO BID [facility] Last Admin: 07/27/18 22:11 Dose: 20 mg Potassium Chloride (K-Dur) 20 meq PO DAILY@0800 [facility] Promethazine HCl (Phenergan) 6.25 mg IV Q4H PRN PRN PRN Reason: NAUSEA/VOMITING Sodium Chloride () 10 ml IV UD PRN PRN Reason: VAD FLUSH Last Admin: 07/28/18 04:17 Dose: 10 ml Medical Necessity - Tobacco Use Smoking Status: Former smoker - Quit 26+ years prior with prior to this 1.5 pack/day cigarette tobacco usage. Tobacco Use: Non-smoker Assessment/Plan All Active Problems Pulmonary embolism (Acute) The patient is a 63 y/o M w/ PMHx: Anxiety and Depression, Overweight, Hypokalemia, GERD, Recent 04/05/18 Diagnosis Choleangiocarcinoma (Metastatic) now completed his fourth round of chemotherapy who presents to the [facility] on 07/27/18 w/ onset atypical chest pain and dyspnea over the last several days w/ outpatient CTPA with saddle PE. (1) Dyspnea, chest pain secondary to Pulmonary Embolism, Saddle: ED workup included T 96.8, heart rate 107, BP 145/80, respiratory rate 18, 91% on room air, CBC with WBC 3.1, hemoglobin 11, platelet 147, unremarkable coags, unremarkable CMP aside alk phos 120, troponin less than 0.015, EKG with no acute evidence of ischemia, CT chest, abdomen and pelvis with contrast performed outpatient at the [facility] notable for results inclusive of large bilateral central pulmonary embolism with emboli extending peripherally to at least the level of the segmentals arteries, stable pulmonary nodules, mild decrease in size of primary hepatic mass and adjacent secondary mass, stable abdominal adenopathy. In the emergency room patient administered therapeutic Lovenox x1. Discussed case with patient oncologist. From review of case Dr. Issa and upon immediate read and results of saddle embolism patient called in therapeutic Lovenox but given severe symptomatology occurred emergently to the ED. Admitted to PCU, maintained on cardiac telemetry, ECHO w/ normal LV systolic function, EF 60%, trivial MDI, trivial TVI, mild focal AV calcification, trivial PVI and BL LE DVT US w/ RLE + acute DVT as expected. Initiated and continued on lovenox 1 mg/kg q12. Verified affordable with patient pharmacy. Oxygenation testing prior to discharge to home with no oxygenation needs. (2) Metastatic cholangiocarcinoma: Patient with recent 04/05/18 diagnosis, recently completed his fourth round of chemotherapy, next planned start on 07/28/18, following w/ Dr. Issa; however, will be rearranged given acute presentation. Mag and phos normal levels. Discussed case with Dr. Issa and will follow-up with him upon discharge, will delay chemotherapy until clinically appropriate from current acute presentation and his office will call to arrange follow-up and regimen. (3) Pancytopenia, Chronic: Admission CBC with WBC 3.1, hemoglobin 11, platelet 147, ongoing recent chemotherapy with as noted diagnosis cholangiocarcinoma, metastatic, 07/28/18 CBC w/ WBC 4.4, Hgb 10.8, Plts 163. (4) Anxiety and Depression: Continue home Prozac regimen. (5) Hypokalemia: Maintain patient on home potassium supplementation. (6) GERD: Continue home PPI. (7) DVT prophylaxis: Therapeutic lovenox.
--- NOTE | 2018-07-28 07:18 | PN_ITS ---
Patient Problems: Active and Suspected Problems Pulmonary embolism (Acute) Subjective: Patient with no acute events overnight per self and per nursing report. Oxygenation assessment this a.m. with no oxygen needs. Patient denies any chest discomfort. He did have nausea and emesis bout x1 however it has improved since. He does take as needed Phenergan at home. Discussed recent test results including DVT ultrasound positive for right lower extremity DVT and patient relates history that with recent chemotherapy as he has been sitting upright and crossing his legs frequently in the chair. Patient denies fevers, chills, nausea, emesis, abdominal pain, chest pain or recurrent or worsened dyspnea. Objective: Physical Examination: General: awake, alert, oriented x 3 and cooperative, seated upright in the bed, notes recent nausea w/ emesis x 1. Skin: normal color, turgor, no icterus, cyanosis. HEENT: AT/NC, EOMI, PERRLA, improved, MMM. Lungs: Diminished breath sounds, greater bilateral bases, moderate effort, no rales, ronchi or wheezing. Heart: Regular rate and rhythm; no gallop, rub audible. Abdomen: soft, obese, NTTP, ND, normal BS. Extremities: no cyanosis, clubbing, bilateral lower extremity pedal to proximal [place]ague edema, nonpitting, no current bilateral calf discomfort noted with pa lpation. Neurological: patient awake, alert, oriented x 3; cognitive function intact; pupils equally reactive to light and accomodation; cranial nerves II-XII grossly normal, moving all 4 extremities, no focal deficits, strength improved, strength mildly globally decreased. Psychiatric: affect appears normal, no acute evidence of depressive or anxiety feelings. Vitals/I&O's: Vital Signs Temp Pulse Resp BP Pulse Ox 98.0 F 88 16 116/72 95 07/28/18 04:08 07/28/18 04:08 07/28/18 04:08 07/28/18 04:08 07/28/18 04:08 Oxygen Flow Rate (L/min) 2 Oxygen Delivery Method Room Air Weight: 290 lb 2.053 oz Body Mass Index (BMI) 36.2 Intake and Output for Last 24 Hours 07/26/18 07/27/18 07/28/18 23:59 23:59 23:59 Intake Total 100 / 100 240 / 240 Balance 100 / 100 240 / 240 Laboratory Results 07/27/18 09:50: WBC 3.1 L, RBC 3.96 L, Hgb 11.0 L, Hct 33.9 L, MCV 85.6, MCH 27.8, MCHC 32.4, RDW 18.0 H, RDW Differential 52.3 H, Plt Count 147 L, MPV 9.8, Neut % (Auto) Not Reportable, Absolute Neuts (auto) 0.5 L, Absolute Lymphs (auto) 1.20, Total Counted 100, Neutrophils % (Manual) 12 L, Band Neutrophils % 4, Lymphocytes % (Manual) 39, Monocytes % (Manual) 38 H, Eosinophils % (Manual) 4, Basophils % (Manual) 2 H, Metamyelocytes % 1, Nucleated RBC % 2.5, Diff Path Review September, Platelet Estimate SLT APR, RBC Morphology NORM C+C, Absolute Retic 0.08 07/27/18 09:50: PT 14.9, INR 1.2, APTT 35.3 07/27/18 09:50: Sodium 137, Potassium 4.2, Chloride 106, Carbon Dioxide 26.0, Anion Gap 5, BUN 11, Creatinine 0.95, Estim Creat Clear Calc 97.60, Est GFR (MDRD) Af Amer 104, Est GFR (MDRD) Non-Af 86, BUN/Creatinine Ratio 11.6, Glucose 91, Calcium 9.1, Total Bilirubin 0.50, AST 30, ALT 23, Alkaline Phosphatase 120 H, Troponin I < 0.015, Total Protein 6.6, Albumin 2.9 L, Globulin 3.7, Albumin/Globulin Ratio 0.8 L 07/27/18 09:50: B-Natriuretic Peptide 57.5 07/27/18 09:50: Phosphorus 2.9, Magnesium 2.1 07/27/18 12:55: Troponin I < 0.015 07/27/18 16:10: Troponin I < 0.015 07/28/18 04:25: WBC 4.4, RBC 3.89 L, Hgb 10.8 L, Hct 34.3 L, MCV 88.2, MCH 27.8, MCHC 31.5 L, RDW 18.4 H, RDW Differential 54.5 H, Plt Count 163, MPV 9.3, Neut % (Auto) Not Reportable, Absolute Neuts (auto) 1.7 L, Absolute Lymphs (auto) 1.98, Total Counted 100, Neutrophils % (Manual) 32 L, Band Neutrophils % 7 H, Lymphocytes % (Manual) 45 H, Monocytes % (Manual) 9, Eosinophils % (Manual) 3, Metamyelocytes % 4 H, Nucleated RBCs/100 WBC 2, Diff Path Review May foll, Reactive Lymphocytes 1+, Platelet Estimate ADEQUATE, Plt Morphology Comment LARGE, Polychromasia 1+, Hypochromasia 1+, Anisocytosis 1+, Microcytosis 1+ 07/28/18 04:25: Sodium 140, Potassium 4.1, Chloride 105, Carbon Dioxide 28.0, Anion Gap 7, BUN 9, Creatinine 0.94, Estim Creat Clear Calc 98.63, Est GFR (MDRD) Af Amer 105, Est GFR (MDRD) Non-Af 87, BUN/Creatinine Ratio 9.6 L, Glucose 84, Calcium 9.1 Current Medications Acetaminophen (Tylenol) 650 mg PO Q6H PRN PRN PRN Reason: Mild Pain (scale 0-3)/T>100.7 Al Hydroxide/Mg Hydroxide (Mylanta Ii) 30 ml PO Q6H PRN PRN PRN Reason: Gastric burning Enoxaparin Sodium (Lovenox) 130 mg 1 mg/kg (130 mg) SC Q12 [facility] Last Admin: 07/27/18 22:12 Dose: 130 mg Fluoxetine HCl (Prozac) 20 mg PO DAILY [facility] Heparin Sodium (Beef Lung) () 50 units IV UD PRN PRN Reason: HEPARIN FLUSH Magnesium Hydroxide (Milk Of Magnesia) 30 ml PO DAILY PRN PRN Reason: Constipation Morphine Sulfate () 2 - 4 mg IV Q3H PRN PRN PRN Reason: Severe Pain (pain scale 6-10) Morphine Sulfate () 1 - 2 mg IV Q4H PRN PRN PRN Reason: Moderate Pain (pain scale 4-5) Nutritional Formula (Lactose Free) (Ensure Enlive) 120 ml PO 4X/DAY [facility] Last Admin: 07/27/18 22:12 Dose: Not Given Oxycodone HCl (Oxyir) 5 mg PO Q4H PRN PRN PRN Reason: Moderate Pain (pain scale 4-5) Pantoprazole Sodium (Protonix) 20 mg PO BID [facility] Last Admin: 07/27/18 22:11 Dose: 20 mg Potassium Chloride (K-Dur) 20 meq PO DAILY@0800 [facility] Promethazine HCl (Phenergan) 6.25 mg IV Q4H PRN PRN PRN Reason: NAUSEA/VOMITING Sodium Chloride () 10 ml IV UD PRN PRN Reason: VAD FLUSH Last Admin: 07/28/18 04:17 Dose: 10 ml Medical Necessity - Tobacco Use Smoking Status: Former smoker - Quit 26+ years prior with prior to this 1.5 pack/day cigarette tobacco usage. Tobacco Use: Non-smoker Assessment/Plan All Active Problems Pulmonary embolism (Acute) The patient is a 63 y/o M w/ PMHx: Anxiety and Depression, Overweight, Hypokalemia, GERD, Recent 04/05/18 Diagnosis Choleangiocarcinoma (Metastatic) now completed his fourth round of chemotherapy who presents to the [facility] on 07/27/18 w/ onset atypical chest pain and dyspnea over the last several days w/ outpatient CTPA with saddle PE. (1) Dyspnea, chest pain secondary to Pulmonary Embolism, Saddle: ED workup incl uded T 96.8, heart rate 107, BP 145/80, respiratory rate 18, 91% on room air, CBC with WBC 3.1, hemoglobin 11, platelet 147, unremarkable coags, unremarkable CMP aside alk phos 120, troponin less than 0.015, EKG with no acute evidence of ischemia, CT chest, abdomen and pelvis with contrast performed outpatient at the [facility] notable for results inclusive of large bilateral central pulmonary embolism with emboli extending peripherally to at least the level of the segmentals arteries, stable pulmonary nodules, mild decrease in size of primary hepatic mass and adjacent secondary mass, stable abdominal adenopathy. In the emergency room patient administered therapeutic Lovenox x1. Discussed case with patient oncologist. From review of case Dr. Issa and upon immediate read and results of saddle embolism patient called in therapeutic Lovenox but given severe symptomatology occurred emergently to the ED. Admitted to PCU, maintained on cardiac telemetry, ECHO w/ normal LV systolic function, EF 60%, trivial MDI, trivial TVI, mild focal AV calcification, trivial PVI and BL LE DVT US w/ RLE + acute DVT as expected. Initiated and continued on lovenox 1 mg/kg q12. Verified affordable with patient pharmacy. Oxygenation testing prior to discharge to home with no oxygenation needs. (2) Metastatic cholangiocarcinoma: Patient with recent 04/05/18 diagnosis, recently completed his fourth round of chemotherapy, next planned start on 07/28/18, following w/ Dr. Issa; however, will be rearranged given acute presentation. Mag and phos normal levels. Discussed case with Dr. Issa and will follow-up with him upon discharge, will delay chemotherapy until clinically appropriate from current acute presentation and his office will call to arrange follow-up and regimen. (3) Pancytopenia, Chronic: Admission CBC with WBC 3.1, hemoglobin 11, platelet 147, ongoing recent chemotherapy with as noted diagnosis cholangiocarcinoma, metastatic, 07/28/18 CBC w/ WBC 4.4, Hgb 10.8, Plts 163. (4) Anxiety and Depression: Continue home Prozac regimen. (5) Hypokalemia: Maintain patient on home potassium supplementation. (6) GERD: Continue home PPI. (7) DVT prophylaxis: Therapeutic lovenox.
[2018-07-28] MEDS: Enoxaparin 150 MG/ML Syringe 130 MG SC (09:33)
[2018-07-28] MEDS: Pantoprazole Sodium 20 MG Tablet PO (09:34)
[2018-07-28] MEDS: FLUoxetine 20 MG Capsule PO (09:36)
--- NOTE | 2018-07-28 09:42 | CASEMGMT ---
Addendum entered by Estephania Cerda 07/28/18 11:34: Per Dr. Murrieta, pt needs to be on Lovenox 130mg sc every 12hrs instead of 135mg sc every 12 hours and she e-scribed new script previously. Call to [facility] to notify them to cancel 135mg Lovenox script that was originally called in by Dr. Issa per Dr. Pitts order at this time, voice understanding. Teja RN CM Original Note: Per Dr. Murrieta, pt had Lovenox called in by Dr. Issa to [facility] in [facility] and she wants this RN CM to verify does, order, and co-pay at this time. Per pharmacist, dose called in by Dr. Issa was 135mg sc every 12 hours with a quantity of 60syringes and he states there is no co-pay for pt at this time. Dr. Murrieta made aware, voice understanding. This RN CM awaiting home oxygen testing at this time and pt will be updated on all. Teja RN CM
--- NOTE | 2018-07-28 11:28 | DCINST_ITS ---
- Discharge Diagnoses Current Active Problems: Current Active and Chronic Problems (1) Dyspnea, chest pain secondary to Pulmonary Embolism, Saddle w/ Acute RLE DVT concurrently (2) Metastatic cholangiocarcinoma (3) Pancytopenia, Chronic (4) Anxiety and Depression (5) Hypokalemia (6) GERD You will use the following diet at home:: Regular Your food should be the consistency of: Regular Your liquids should be the consistency of: Regular/Thin Discharge Activity: - - Avoid aggressive activity until reevaluation per oncologist and cleared to increase. May resume sexual activity in: No Restrictions Weight Bearing Status: Weight bearing as tolerated Call your doctor if you observe: Fever of 101 or Higher, Inability to urinate, Inability to have a bowel movement, Shortness of breath, Dizziness, Fainting spells, Chest pain, Uncontrolled pain Instructions: Pulmonary Embolism, Discharge Instructions for Pulmonary Embolism, Enoxaparin Sodium (Porcine) Solution for injection Allergies/Adverse Reactions: Allergies ondansetron [From Zofran] Adverse Reaction (Verified 07/27/18 09:17) Nausea Medications to take at Discharge Fluoxetine [Prozac] 20 mg PO DAILY 07/27/18 Omeprazole 20 mg PO BID 07/27/18 Potassium Chloride [Klor-Con] 20 meq PO DAILY 07/27/18 Promethazine HCl 25 mg PO PRN PRN 07/27/18 Enoxaparin [Lovenox] 130 mg SC Q12 #60 syringe 07/28/18 The following prescriptions were given: Enoxaparin [Lovenox] 130 mg SC Q12 #60 syringe Primary Care Physician: Yari Arroyo PA-C [Primary Care Provider] - Please follow up with your Primary Care Physician in: Follow-up within 3-5 days to review admission. Test Results: Test results from this visit will be discussed in further detail at your follow- up appointment, if applicable. Please Follow Up With: Willian Issa DO When: The office will call you with appointment and chemotherapy timeline. Proposed Discharge Date: 07/28/18
[2018-07-28] MEDS: proMETHazine 25 MG/ML Syringe 6.25 MG IV (12:17)
--- NOTE | 2018-07-28 12:42 | DS.PCM_ITS ---
Discharge Date and Diagnosis - Problem List Patient Problems: Active and Suspected Problems Pulmonary embolism (Acute) Date of Admission: 07/27/18 Date of Discharge: 07/28/18 - Primary Discharge Diagnosis Active and Suspected Problems (1) Dyspnea, chest pain secondary to Pulmonary Embolism, Saddle w/ Acute RLE DVT (2) Metastatic cholangiocarcinoma (3) Pancytopenia, Chronic (4) Anxiety and Depression (5) Hypokalemia (6) GERD - Secondary Discharge Diagnosis Chronic Problems Cholangiocarcinoma (Chronic) Anxiety and depression (Chronic) GERD (gastroesophageal reflux disease) (Chronic) Hypokalemia (Chronic) Hospital Course and Treatment Operations: None Procedures: EKG, Transthoracic echo Summary of Care Provided: The patient is a 63 y/o M w/ PMHx: Anxiety and Depression, Overweight, Hypokalemia, GERD, Recent 04/05/18 Diagnosis Choleangiocarcinoma (Metastatic) now completed his fourth round of chemotherapy who presented to the [facility] on 07/27/18 w/ onset atypical chest pain and dyspnea over the last several days w/ outpatient CTPA with saddle PE. ED workup included T 96.8, heart rate 107, BP 145/80, respiratory rate 18, 91% on room air, CBC with WBC 3.1, hemoglobin 11, platelet 147, unremarkable coags, unremarkable CMP aside alk phos 120, troponin less than 0.015, EKG with no acute evidence of ischemia, CT chest, abdomen and pelvis with contrast performed outpatient at the [facility] notable for results inclusive of large bilateral central pulmonary embolism with emboli extending peripherally to at least the level of the segmentals arteries, stable pulmonary nodules, mild decrease in size of primary hepatic mass and adjacent secondary mass, stable abdominal adenopathy. In the emergency room patient administered therapeutic Lovenox x1. Discussed case with patient oncologist. From review of case Dr. Issa and upon immediate read and results of saddle embolism patient called in therapeutic Lovenox but given severe symptomatology occurred emergently to the ED. Admitted to PCU, maintained on cardiac telemetry, ECHO w/ normal LV systolic function, EF 60%, trivial MDI, trivial TVI, mild focal AV calcification, trivial PVI and BL LE DVT US w/ RLE + acute DVT as expected. Initiated and continued on lovenox 1 mg/kg q12. Verified affordable with patient pharmacy. Oxygenation testing prior to discharge to home with no oxygenation needs. Of note patient with recent 04/05/18 diagnosis cholangiocarcinoma, recently completed his fourth round of chemotherapy, next planned start on 07/28/18, following w/ Dr. Issa; however, will be rearranged given acute presentation. Mag and phos normal levels. Discussed case with Dr. Issa and will follow-up with him upon discharge, will delay chemotherapy until clinically appropriate from current acute presentation and his office will call to arrange follow-up and regimen. Patient discharged to home in improved condi tion with recommend follow-up with PCP as well as planned follow-up with oncology. Patient Problems: Active and Suspected Problems Pulmonary embolism (Acute) - Physical Exam Vital Signs Temp Pulse Resp BP Pulse Ox 97.7 F L 97 18 121/80 H 94 07/28/18 09:24 07/28/18 09:24 07/28/18 09:24 07/28/18 09:24 07/28/18 09:48 Oxygen Flow Rate (L/min) 2 Oxygen Delivery Method Room Air Weight: 290 lb 2.053 oz Body Mass Index (BMI) 36.2 Intake and Output for Last 24 Hours 07/26/18 07/27/18 07/28/18 23:59 23:59 23:59 Intake Total 100 / 100 480 / 480 Balance 100 / 100 480 / 480 Laboratory Tests Past 24 Hrs 07/27/18 07/27/18 07/28/18 12:55 16:10 04:25 WBC 4.4 RBC 3.89 L Hgb 10.8 L Hct 34.3 L MCV 88.2 MCH 27.8 MCHC 31.5 L RDW 18.4 H RDW Differential 54.5 H Plt Count 163 MPV 9.3 Neut % (Auto) Not Reportable Absolute Neuts (auto) 1.7 L Absolute Lymphs (auto) 1.98 Total Counted 100 Neutrophils % (Manual) 32 L Band Neutrophils % 7 H Lymphocytes % (Manual) 45 H Monocytes % (Manual) 9 Eosinophils % (Manual) 3 Metamyelocytes % 4 H Nucleated RBCs/100 WBC 2 Diff Path Review May foll Reactive Lymphocytes 1+ Platelet Estimate ADEQUATE Plt Morphology Comment LARGE Polychromasia 1+ Hypochromasia 1+ Anisocytosis 1+ Microcytosis 1+ Sodium Potassium Chloride Carbon Dioxide Anion Gap BUN Creatinine Estim Creat Clear Calc Est GFR (MDRD) Af Amer Est GFR (MDRD) Non-Af BUN/Creatinine Ratio Glucose Calcium Troponin I < 0.015 < 0.015 07/28/18 04:25 WBC RBC Hgb Hct MCV MCH MCHC RDW RDW Differential Plt Count MPV Neut % (Auto) Absolute Neuts (auto) Absolute Lymphs (auto) Total Counted Neutrophils % (Manual) Band Neutrophils % Lymphocytes % (Manual) Monocytes % (Manual) Eosinophils % (Manual) Metamyelocytes % Nucleated RBCs/100 WBC Diff Path Review Reactive Lymphocytes Platelet Estimate Plt Morphology Comment Polychromasia Hypochromasia Anisocytosis Microcytosis Sodium 140 Potassium 4.1 Chloride 105 Carbon Dioxide 28.0 Anion Gap 7 BUN 9 Creatinine 0.94 Estim Creat Clear Calc 98.63 Est GFR (MDRD) Af Amer 105 Est GFR (MDRD) Non-Af 87 BUN/Creatinine Ratio 9.6 L Glucose 84 Calcium 9.1 Troponin I Discharge Activity: - - Avoid aggressive activity until reevaluation per oncologist and cleared to increase. May resume sexual activity in: No Restrictions Weight Bearing Status: Weight bearing as tolerated Call your doctor if you observe: Fever of 101 or Higher, Inability to urinate, Inability to have a bowel movement, Shortness of breath, Dizziness, Fainting spells, Chest pain, Uncontrolled pain Home Medications: Medications to take at Discharge Fluoxetine [Prozac] 20 mg PO DAILY 07/27/18 Omeprazole 20 mg PO BID 07/27/18 Potassium Chloride [Klor-Con] 20 meq PO DAILY 07/27/18 Promethazine HCl 25 mg PO PRN PRN 07/27/18 Enoxaparin [Lovenox] 130 mg SC Q12 #60 syringe 07/28/18 Following Prescrptions Were Given to Patient: Enoxaparin [Lovenox] 130 mg SC Q12 #60 syringe Primary Care Physician: Yari Arroyo PA-C [Primary Care Provider] - Please follow up with your Primary Care Physician in: Follow-up within 3-5 days to review admission. Please Follow Up With: Willian Issa DO When: The office will call you with appointment and chemotherapy timeline. Patient Instructions: Enoxaparin Sodium (Porcine) Solution for injection, Pulmonary Embolism, Discharge Instructions for Pulmonary Embolism Disposition: Home Minutes spent on discharge:: 35 Patient Condition:: Fair Medical Necessity - Tobacco Use Smoking Status: Former smoker - Quit 26+ years prior with prior to this 1.5 pack/day cigarette tobacco usage. Tobacco Use: Non-smoker Meaningful Use Info Meaningful Use Diagnoses (Choose all that apply): VTE - VTE Anticoag overlap given w/in hospital stay or rx'd at dc?: No Pt receive overlap for 5 days?: No Reason overlap not ordered, prescribed, or given for 5 days: Treatment Not Indicated - Patient on therapeutic Lovenox. Code Visit Inpatient E&M: 70758 Disch Hosp
[2018-07-28 14:33] LABS: Pathologist Review Reviewed
[2018-07-28 14:41] LABS: Pathologist Review Reviewed
== END 2018-07-28 14:08 | disposition home or self-care (01) | DRG 176 ==
LOC: ED 09:44 → PCU 11:18
PROVIDERS: Admitting Provider Family Medicine; Emergency Provider Emergency Medicine; Family Provider Family Medicine; PCP Family Medicine; Visit Provider Family Medicine
DX: I26.92 Saddle embolus of pulmonary artery without acute cor pulmonale (principal); C22.1 Intrahepatic bile duct carcinoma; C79.9 Secondary malignant neoplasm of unspecified site; I82.401 Acute embolism and thrombosis of unspecified deep veins of right lower extremity; D61.818 Other pancytopenia; E87.6 Hypokalemia; K21.9 Gastro-esophageal reflux disease without esophagitis; F41.9 Anxiety disorder, unspecified; F32.9 Major depressive disorder, single episode, unspecified
CPT/HCPCS: 36591; 71045; 80048; 80053; 83735; 83880; 84100; 84484; 85025; 85610; 85730; 93005; 93306; 93970; 97802; 99284; A4216

== ENCOUNTER → 2018-09-24 | Outpatient (CLI) | payer BC, SELFPAY ==
[2018-07-27 12:02] VITALS: BMI 36.2
[2018-09-24] VITALS (7 sets, daily range): BP systolic 104–144; BP diastolic 62–87; PULSE 99–133; RESP 16–18; TEMP 36.3–36.7; O2SAT 94–99; BMI 33.8
== END | disposition home or self-care (01) ==
LOC: MEDOUTP 08:01
PROVIDERS: Family Provider Family Medicine; PCP Family Medicine; Referring Provider Internal Medicine Hematology & Oncology; Visit Provider Internal Medicine Hematology & Oncology
DX: D64.81 Anemia due to antineoplastic chemotherapy (principal)
CPT/HCPCS: 36430; 86850; 86900; 86920; 86922; J7040; P9016; A4216